=== PATIENT | male | born 1960 | race Caucasian/White ===

== ENCOUNTER 2019-12-04 15:55 | Emergency (ER) | payer OTHER, SELFPAY ==
--- NOTE | 2019-12-04 16:08 | ED.URI ---
HPI - URI/Sore Throat General Chief Complaint: Skin/Abscess/Foreign Body Stated Complaint: Cold/Flu/Covid symptoms Time Seen by Provider: 12/04/19 16:15 Source: patient and RN notes reviewed Mode of arrival: ambulatory Limitations: no limitations History of Present Illness HPI Narrative: 59 year old male who presents to [facility] care with complaints of fever, body aches, and headache since yesterday with redness to his right lower leg from his anterior ankle to skin below his right knee presenting this morning.. Patient states that he was diagnosed COVID positive on 11/08/2019 and he was quarantined till he returned to work on 11/18/2019 and had been feeling well. Patient states that she has history of previous cellulitis to this right lower leg in 2016 and he took oral antibiotics then that were 200 dollars when he picked them up from the pharmacy. MD elicited complaint: fever Pertinent past history: other (COVID 11/08/2019 returned to work11/18/2019, previous history of cellulitis to right lower leg) Onset (ago): day(s) (1) Consistency: constant Severity: moderate Pain scale (0-10): 5 Able to tolerate fluids by mouth: Yes Associated symptoms: fever, myalgias, headache and other (redness cellulitis right lower leg anterior aspect) Treatments prior to arrival: acetaminophen Related Data Home Medications Medication Instructions Recorded Confirmed losartan-hydrochlorothiazide 1 tablet DAILY 12/04/19 12/04/19 potassium chloride 10 meq PO DAILY 12/04/19 12/04/19 Allergies Allergy/AdvReac Type Severity Reaction Status Date / Time Penicillins Allergy Unknown Hives Verified 12/04/19 16:06 Review of Systems Review of Systems: Narrative: CONSTITUTIONAL: Denies fever, chills, or sweats. EYES: Denies visual changes, redness, or discharge. ENT: Denies rhinorrhea, congestion, sore throat, or otalgia. CARDIOVASCULAR: Denies chest pain, palpitations, or edema. RESPIRATORY: Denies cough or dyspnea. GASTROINTESTINAL: Denies abdominal pain, nausea, vomiting, or diarrhea. GENITOURINARY: Denies dysuria or hematuria. SKIN: Positive for rash from ankle to skin below knee anterior aspect red and painful, no drainage noted, mild swelling of leg noted MUSCULOSKELETAL: Denies back pain, joint pain, or myalgia. NEUROLOGIC: Denies headache, numbness, or weakness. PSYCHIATRIC: Denies anxiety or depression. All systems reviewed & are unremarkable except as noted in HPI and below PMFSH Past Medical History Medical History (Updated 12/04/19 @ 18:26 by oRsa Barahona NP) Dislocated shoulder Hypertension Surgical History Surgical History (Updated 12/04/19 @ 18:26 by Rosa Barahona NP) Hx of inguinal hernia repair Social History Social History (Updated 12/04/19 @ 18:27 by Rosa Barahona NP) Smoking status: Never smoker Substance use: never Living arrangements: with family Gender identity (if verbalized by the patient): Male Comments At time of signature, agree with nursing past medical, surgical, social and family history. There is no relevant family history pertinent to the presenting complaint Exam Narrative: Exam Narrative: GENERAL: Well-appearing, well-nourished, and in no acute distress. HEAD: Normocephalic, atraumatic. EYES: PERRLA and EOMI. ENT: Nares clear, no rhinorrhea or epistaxis. Mucous membranes moist. NECK: Supple.no lymphadenopathy CHEST: Clear to auscultation. No respiratory distress.SAO2 97%on room air HEART: Regular rate and rhythm. No murmur heard. Normal peripheral pulses. ABDOMEN: Soft, nontender, nondistended, normal active bowel sounds. EXTREMITIES: Normal range of motion. trace edema to right lower leg from ankle to skin under knee with tissue red and raised rash with no drainage noted, tenderness to tissue. SKIN: Warm, dry, no rash. NEURO: No focal deficits. Alert and oriented x3. Course Vital Signs Vital signs: Vital Signs Temperature 37.8 C H 12/04/19 16:15 Pulse Rate 92 12/04/19 16:15
[2019-12-04 16:15] VITALS: BP 146/89; PULSE 92; RESP 18; TEMP 37.8; O2SAT 97
== END 2019-12-04 16:40 | disposition home or self-care (01) ==
PROVIDERS: Emergency Provider Registered Nurse; PCP Family Medicine
DX: L03.115 Cellulitis of right lower limb (principal); I10 Essential (primary) hypertension
CPT/HCPCS: 99213; G0463

== ENCOUNTER → 2019-12-19 11:13 | Outpatient (CLI) | payer OTHER, SELFPAY ==
--- NOTE | ~2019-12-19 | XR_ITS ---
EXAMINATION: XR tibia fibula RT 2V EXAM DATE: 12/20/2019 06:02 INDICATION: Cellulitis of the lower limbs. Right leg pain. TECHNIQUE: Right tibia/fibula frontal and lateral projections obtained and reviewed. There is no parish or study for comparison. FINDINGS: Right tibial and fibular shafts unremarkable. There are no acute fractures or dislocations identified. There is no subcutaneous gas. Evidence of subcutaneous edema, skin thickening along the right lower extremity. There are no radiopaque foreign bodies. IMPRESSION: 1. Right tibia/fibula exam without acute osseous findings. 2. Soft tissue swelling. Reviewed, dictated and finalized at location A.
== END ==
PROVIDERS: PCP Internal Medicine Infectious Disease; Visit Provider Internal Medicine Infectious Disease
DX: L03.115 Cellulitis of right lower limb (principal)
CPT/HCPCS: 73590

== ENCOUNTER 2021-10-23 10:54 | Emergency (ER) | payer OTHER, SELFPAY ==
[2021-10-23 11:04] VITALS: BP 153/77; PULSE 94; RESP 16; TEMP 37.8; O2SAT 98
--- NOTE | 2021-10-23 11:48 | ED.SKABFB ---
HPI - Skin/Abscess/Foreign Bdy General Chief complaint: Extremity Problem,Nontraumatic Stated complaint: Right Leg Pain Time Seen by Provider: 10/23/21 11:36 Source: patient Mode of arrival: ambulatory Limitations: no limitations History of Present Illness HPI narrative: Patient presents today complaining of redness and pain to his right lower leg that he believes is cellulitis. Symptoms began last night. He is pain-free at rest, but this increases when he touches the area. He has been taking ibuprofen with some relief. He has had cellulitis 3-4 times in the past. He is borderline diabetic. Related Data Home Medications Medication Instructions Recorded Confirmed omeprazole 20 mg capsule,delayed 20 mg PO DAILY 02/26/21 10/23/21 release Allergies Allergy/AdvReac Type Severity Reaction Status Date / Time Penicillins Allergy Unknown Hives Verified 10/23/21 11:54 Review of Systems Review of Systems: CONSTITUTIONAL: Denies body aches, fever, chills, or sweats. EYES: Denies visual changes, redness, or discharge. ENT: Denies rhinorrhea, congestion, sore throat, or otalgia. CARDIOVASCULAR: Denies chest pain, palpitations, or edema. RESPIRATORY: Denies cough or dyspnea. GASTROINTESTINAL: Denies abdominal pain, nausea, vomiting, or diarrhea. GENITOURINARY: Denies dysuria or hematuria. SKIN: +Redness to right lower leg MUSCULOSKELETAL: Denies back pain, joint pain, or myalgia. NEUROLOGIC: Denies headache, numbness, tingling, or weakness. PSYCH: Denies depression or anxiety. [facility] Past Medical History Medical History COVID-19 Dislocated shoulder Fasting hyperglycemia Hypertension Surgical History Surgical History Hx of inguinal hernia repair Family History Family History Mother COPD (chronic obstructive pulmonary disease) Father Cancer Grandparent Kidney failure Social History Social History Smoking status: Never smoker Second hand tobacco smoke exposure: No Alcohol intake: current Drinks per week: 3 Alcohol use details: vodka /rum Substance use: never Substance use type: does not use Gender identity (if verbalized by the patient): Male Comments At time of signature, I have reviewed and agree with nursing past medical, surgical, social and family history unless otherwise noted. Please see nursing chart for further information. There is no relevant family history pertinent to the presenting complaint Exam Narrative: GENERAL: Well-appearing, well-nourished, and in no acute distress. HEAD: Normocephalic, atraumatic. EYES: EOMI. No redness or drainage. Conjunctivae normal. ENT: Mucous membranes pink and moist. NECK: Normal AROM. CHEST: No respiratory distress. EXTREMITIES: Right lower leg:Erythema with some mild induration circumferentially around the distal two thirds of the right lower leg. Increased warmth to the area as well.Distal sensation intact. Superficial tenderness to palpation. Capillary refill normal. Pedal pulse normal. Full range of motion of the toes and ankle. SKIN: Warm, dry, no rash. Capillary refill normal. Normal skin turgor. NEURO: No focal deficits. Alert and oriented x3. Gait steady. PSYCH: Normal affect. No signs of depression or anxiety. Course Course Level of Care: Express Care Visit Vital Signs Vital signs: Vital Signs Temperature 100.0 F H 10/23/21 11:04 Pulse Rate 94 10/23/21 11:04 Respiratory Rate 16 10/23/21 11:04 Blood Pressure 153/77 H 10/23/21 11:04 Pulse Oximetry 98 10/23/21 11:04 Oxygen Delivery Room Air 10/23/21 11:04 Temperature 100.0 F H 10/23/21 11:04 Pulse Rate 94 10/23/21 11:04 Respiratory Rate 16 10/23/21 11:04 Blood P
== END 2021-10-23 11:57 | disposition home or self-care (01) ==
PROVIDERS: Emergency Provider Nurse Practitioner; PCP Internal Medicine
DX: L03.115 Cellulitis of right lower limb (principal); R73.03 Prediabetes; I10 Essential (primary) hypertension; Z86.16 Personal history of COVID-19
CPT/HCPCS: 99213; G0463

== ENCOUNTER 2023-06-01 19:41 | Emergency (ER) | payer MEDICARE, SELFPAY ==
--- NOTE | ~2023-06-01 | XR_ITS ---
XR knee RT 3V 06/01/2023 20:58 Indication: Right knee pain Procedure: 4 views right knee Comparison: 12/19/2019 Findings: Mild osteoarthritis of the right knee. No acute fracture or traumatic malalignment. No sign ificant joint effusion. No foreign bodies. Impression: 1: No acute fracture. Reviewed, dictated and finalized at location A. Impression: 1: No acute fracture.
[2023-06-01 19:43] VITALS: PULSE 87; RESP 16; TEMP 37.4; O2SAT 100
[2023-06-01] MEDS: KETOROLAC 30 MG/ML VIAL (*BKC) IM (20:59)
--- NOTE | 2023-06-01 21:04 | ED.EXTPRO ---
HPI - Extremity Problem General Chief complaint: Extremity Problem,Nontraumatic Stated complaint: right knee pain Time Seen by Provider: 06/01/23 20:20 Source: patient Mode of arrival: ambulatory Limitations: no limitations History of Present Illness HPI Narrative: This is a 63-year-old male who presents to the ED with chief complaint of right knee pain for the past 3 days. Reports pain throughout the right knee joint, worse when bearing weight. States he is able to range the knee fully seated. 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 He thinks he may have twisted it but is unsure of any specific injury. Denies leg swelling, fevers, chills Related Data Home Medications Medication Instructions Recorded Confirmed omeprazole 20 mg capsule,delayed 20 mg PO DAILY 02/26/21 02/17/23 release Allergies Allergy/AdvReac Type Severity Reaction Status Date / Time Penicillins Allergy Unknown Hives Verified 06/01/23 19:42 Review of Systems Review of Systems: [facility] Past Medical History Medical History COVID-19 Dislocated shoulder Fasting hyperglycemia Hypertension Surgical History Surgical History Hx of inguinal hernia repair Family History Family History Mother COPD (chronic obstructive pulmonary disease) Father Cancer Grandparent Kidney failure Social History Social History Smoking status: Never smoker Second hand tobacco smoke exposure: No Alcohol intake: current Drinks per week: 7 Alcohol use details: vodka /rum Substance use: never Substance use type: does not use Lack of Transportation: No Lack of Food: Never True Current Housing: I Have Housing Concerned About Future Housing: No Difficulty Paying Gas/Electric Bills: No Difficulty Paying for Meds: No Currently Unemployed: No Education: High School Diploma/GED Difficulty w/ Childcare or Family Care: No Living arrangements: with family Gender identity (if verbalized by the patient): Male Exam Narrative: GENERAL: Well-appearing, well-nourished, and in no acute distress. HEAD: Normocephalic, atraumatic. EYES: PERRLA and EOMI. ENT: Nares clear, no rhinorrhea or epistaxis. Mucous membranes moist. Oropharynx without tonsillar hypertrophy exudate or other lesions. NECK: Supple. No adenopathy or masses. CHEST: No respiratory distress. Clear to auscultation. No wheezes rales or rhonchi HEART: Regular rate and rhythm. No murmur heard. Normal peripheral pulses. ABDOMEN: Soft, nontender, nondistended, normal active bowel sounds. MSK: Right lower extremity: full active and passive range of motion of the right knee. There is minimal tenderness to the knee. Pain with weight-bearing. Neurovascularly intact. No calf edema. Left lower extremity benign. SKIN: Warm, dry, no rash. NEURO: Alert and oriented x3. No focal deficits. PSYCH: Normal mood and affect. Course Vital Signs Vital signs: Vital Signs Temperature 99.4 F 06/01/23 19:43 Pulse Rate 87 06/01/23 19:43 Respiratory Rate 16 06/01/23 19:43 Pulse Oximetry 100 06/01/23 19:43 Oxygen Delivery Room Air 06/01/23 19:43 Temperature 98.4 F 06/01/23 21:45 Pulse Rate 88 06/01/23 21:45 Respiratory Rate 17 06/01/23 21:45 Blood Pressure 138/86 06/01/23 21:45 Pulse Oximetry 98 06/01/23 21:45 Oxygen Delivery Room Air 06/01/23 19:43 MDM - Extremity (Nontraumatic) MDM Narrative Medical decision making narrative: This is a 63-year-old male who presents to the ED with chief complaint of right knee pain for the past 3 days. Works a very strenuous manual labor job. Vitals are normal. Exam shows difficulty weight-bearing
[2023-06-01 21:45] VITALS: BP 138/86; PULSE 88; RESP 17; TEMP 36.9; O2SAT 98
== END 2023-06-01 21:47 | disposition home or self-care (01) ==
PROVIDERS: Emergency Provider Physician Assistant; PCP Family Medicine
DX: M25.561 Pain in right knee (principal); I10 Essential (primary) hypertension; Z86.16 Personal history of COVID-19
CPT/HCPCS: 73562; 96372; 99283; J1885

== ENCOUNTER 2023-07-18 10:48 | Outpatient (CLI) | payer MEDICARE, SELFPAY ==
--- NOTE | ~2023-07-18 | MR_ITS ---
MRI of the right knee Clinical history: Pain Technique: Coronal proton density and proton density-weighted images, sagittal proton-density and T2 fat-sat images, and axial proton-density fat-saturated images were acquired. Findings: Anterior and posterior cruciate ligaments are intact. Medial collateral ligament and the la teral collateral ligament complex are intact. Popliteus tendon is intact. There is a vertical tear near the posterior root of the medial meniscus. No lateral meniscal tear jacqueline ntified. There is subchondral insufficiency fracture of the medial femoral condyle with extensive surrounding amorphous marrow edema. There is moderate chondral thinning at the medial joint line. There is mild c hondral thinning in the lateral compartment. There is moderate to high-grade chondral lesion at the c entral aspect of the femoral trochlea. Patellar cartilage is well preserved. Extensor mechanism is intact. Small to moderate joint effusion present. No significant Duran's cyst. Impression: Linear subchondral insufficiency fracture of the medial femoral condyle with extensive surrounding ma rrow edema. Vertical tear near the posterior root of the medial meniscus. Mild degenerative changes, as above. Small to moderate joint effusion. Reviewed, dictated and finalized at [facility]. Impression: Linear subchondral insufficiency fracture of the medial femoral condyle with ex tensive surrounding marrow edema. Vertical tear near the posterior root of the medial meniscus. Mild degenerative changes, as above. Small to moderate joint effusion.
== END 2023-07-18 10:49 ==
LOC: MICIMG 10:49
PROVIDERS: PCP Family Medicine; Visit Provider Family Medicine
DX: M25.461 Effusion, right knee (principal); M17.11 Unilateral primary osteoarthritis, right knee
CPT/HCPCS: 73721

== ENCOUNTER 2025-02-26 08:55 | Outpatient (CLI) | payer MEDICARE, SELFPAY ==
--- NOTE | ~2025-02-26 | XR_ITS ---
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 Findings: No acute fracture or malalignment. Moderate degenerative changes of the medial and patellofemoral joint with a small possible osteochondral defect in the medial femoral condyle. Soft tissues unremarkable. Impression: No acute fracture or malalignment. Reviewed, dictated and finalized at location P. COLLECTOR Impression: No acute fracture or malalignment.
== END 2025-02-26 08:56 | disposition home or self-care (01) ==
LOC: MICIMG 08:56
PROVIDERS: PCP Family Medicine; Visit Provider Family Medicine
DX: M25.561 Pain in right knee (principal)
CPT/HCPCS: 73562